=== PATIENT | female | born 1945 | race Caucasian/White ===

== ENCOUNTER → 2025-05-14 13:45 | Outpatient (REF) | payer MEDICARE, OTHER, SELFPAY | LOC: RAD 13:45 | PROVIDERS: ATTENDING PHYSICIAN Family Medicine | DX: M25.532 Pain in left wrist (principal) | CPT/HCPCS: 73100; 73130 ==

== ENCOUNTER → 2025-05-19 12:45 | Outpatient (REF) | payer MEDICARE, OTHER, SELFPAY | LOC: RCS 12:45 | PROVIDERS: ATTENDING PHYSICIAN Internal Medicine; FAMILY PHYSICIAN Family Medicine | DX: I49.1 Atrial premature depolarization (principal); I42.8 Other cardiomyopathies; I10 Essential (primary) hypertension | CPT/HCPCS: 93306 ==